=== PATIENT | male | born 1980 | race Two or more races ===

== ENCOUNTER → 2021-05-25 09:00 | Outpatient (CLI) | payer OTHER | END | disposition home or self-care (01) | LOC: LAB 09:00 | PROVIDERS: ATTEND Internal Medicine Cardiovascular Disease | DX: I10 Essential (primary) hypertension (principal); E11.9 Type 2 diabetes mellitus without complications; E03.8 Other specified hypothyroidism; E78.2 Mixed hyperlipidemia; N40.0 Benign prostatic hyperplasia without lower urinary tract symptoms; E55.9 Vitamin D deficiency, unspecified ==

== ENCOUNTER 2021-05-26 08:12 | Outpatient (CLI) | payer OTHER | END 2021-05-26 08:13 | disposition home or self-care (01) | LOC: NUCLEAR 08:12 | PROVIDERS: ATTEND Internal Medicine Cardiovascular Disease | DX: I10 Essential (primary) hypertension (principal) ==

== ENCOUNTER 2021-06-10 08:11 | Outpatient (CLI) | payer OTHER | END 2021-06-10 08:39 | disposition home or self-care (01) | LOC: SONOGRAMA 08:11 → MAMO-SONO 08:45 | PROVIDERS: ATTEND Internal Medicine Cardiovascular Disease | DX: R10.84 Generalized abdominal pain (principal) ==

== ENCOUNTER 2021-12-28 09:06 | Outpatient (CLI) | payer OTHER | END 2021-12-28 09:28 | disposition home or self-care (01) | LOC: LAB 09:06 | PROVIDERS: ATTEND Internal Medicine Cardiovascular Disease | DX: D32.0 Benign neoplasm of cerebral meninges (principal) ==